=== PATIENT | female | born 1930 | race Caucasian/White ===

== ENCOUNTER 2018-01-25 07:53 | Day surgery (SDC) | payer MEDICARE, BC ==
[~2018-01-25 07:53] MED LIST: Buffered Lidocaine 0.9% SYRIN* 5 ML/SYR SYRINGE INTRADERM ONE; Dexamethasone IV* 4 MG/ML 1 ML (4 MG) IV SLOW PU ONE; Famotidine IV* 10 MG/ML 2 ML (20 mg) IV ONE
[2018-01-25] MEDS ORDERED: Dexamethasone IV* 4 MG/ML 1 ML (4 MG) ONE (07:59)
[2018-01-25] MEDS ORDERED: Famotidine IV* 10 MG/ML 2 ML (20 mg) ONE (08:00)
[2018-01-25] MEDS ORDERED: ceFAZolin 2 GM PREMIX (*) 2 GM/50 ML BAG IVPB ONE (08:00)
[2018-01-25] MEDS ORDERED: Lidocain 1% EPI 1:100,000 * 30 ML MDV ONE (09:24)
[2018-01-25] MEDS ORDERED: Mineral Oil Sterile, TOPICAL* 25 ML BTL ONE (09:24)
[2018-01-25] MEDS ORDERED: Bupivacaine 0.25% SDV* 30 ML ONE (09:25)
[2018-01-25] MEDS ORDERED: Midazolam* 1 MG/ML 2 ML VIAL (2 MG) ONE (09:26)
[2018-01-25] MEDS ORDERED: fentaNYL* 50 MCG/ML 2 ML VIAL (100 MCG VIAL) ONE (09:26)
[2018-01-25] MEDS ORDERED: Acetaminophen TAB* 325 MG PO PRN (09:30)
[2018-01-25] MEDS ORDERED: HYDROcodone/ACETAMIN 5-325 MG* 1 TAB PO PRN (09:30)
[2018-01-25] MEDS ORDERED: Naloxone* 0.4 MG/ML 1 ML VIAL IV PRN (09:30)
[2018-01-25] MEDS ORDERED: Ondansetron INJ* 2 MG/ML VIAL IV PRN (09:30)
[2018-01-25] MEDS ORDERED: fentaNYL* 50 MCG/ML 2 ML VIAL (100 MCG VIAL) IV PRN (09:30)
[2018-01-25] MEDS ORDERED: Propofol* 10 MG/ML 20 ML BTL IV PUSH ONE ×2 (09:44→10:52)
[2018-01-25] MEDS ORDERED: Lidocaine 2% PF * 5 ML VIAL ONE (09:44)
[2018-01-25] MEDS ORDERED: EPHEDrine (Pressors)* 50 MG/ML VIAL ONE (10:17)
[2018-01-25 12:01] VITALS: BP 118/64
== END 2018-01-25 12:40 | disposition home or self-care (01) ==
LOC: OR 07:53
PROVIDERS: ATTEND Plastic Surgery
DX: C44.311 Basal cell carcinoma of skin of nose (principal); I10 Essential (primary) hypertension; Z85.038 Personal history of other malignant neoplasm of large intestine
CPT/HCPCS: 88305; 88331; 88332; A9270-GY; J0690; J1100; J2250; J2704; J3010